=== PATIENT | female | born 1975 | race Caucasian/White ===

== ENCOUNTER → 2021-07-12 12:54 | Outpatient (CLI) | payer OTHER, SELFPAY ==
--- NOTE | ~2021-07-12 | MR_ITS ---
EXAMINATION: MR brain/brain stem wo/w con DATE: 07/12/2021 13:58 INDICATION: Dizziness and giddiness. TECHNIQUE: Magnetic resonance imaging (MRI) of the brain and brainstem was performed without and with 13 mL MultiHance intravenous contrast. Sequences included sagittal and axial T1-weighted FSE, axial diffusion-weighted FS EPI, axial T2*-weighted GRE, axial T2-weighted FLAIR Propeller, axial T2-weight ed Propeller, small oywrr-zq-dvww coronal FIESTA, small lleia-pn-hjuu coronal T1-weighted FSE, and sm all qsemx-et-lrrf axial T1-weighted SPGR. Postcontrast sequences included axial T1-weighted FSE, smal l mguhc-nf-dwyl coronal T1-weighted FSE, and small dymiu-fg-rwak axial T1-weighted SPGR. Apparent dif fusion coefficient (ADC) maps were created. COMPARISON: None. FINDINGS: There are scattered areas of nonspecific increased T2-weighted signal intensity in the cere bral white matter, which is within normal limits for the patient's age. There is no intracranial hemo rrhage, acute infarction, or abnormal intracranial mass lesion. The ventricles are normal in size. Th e internal auditory canals and inner and middle ears are normal. The mastoid air cells are normal. Th e orbits are normal. The paranasal sinuses are clear. IMPRESSION: 1. Normal aging brain. Reviewed, dictated and finalized at location A. IMPRESSION: 1. Normal aging brain.
[2021-07-12 13:23] LABS: Estimated Glomerular Filt Rate > 60
== END ==
PROVIDERS: PCP Family Medicine; Visit Provider Physician Assistant
DX: R42 Dizziness and giddiness (principal)
CPT/HCPCS: 70553; A9577

== ENCOUNTER → 2022-05-03 11:35 | Outpatient (CLI) | payer OTHER, SELFPAY ==
--- NOTE | ~2022-05-03 | US_ITS ---
EXAMINATION: US pelvic complete w TV DATE: 05/03/2022 12:08 INDICATION: Abnormal bleeding Comparison:No prior studies for comparison TECHNIQUE: Multiple transabdominal and endovaginal sonographic images of the pelvis performed. FINDINGS: The uterus measures 10 x 5.1 x 6.4 cm.. There is a hypoechoic mass of the uterus on the rig ht measuring 3.3 x 3.1 x 3.1 cm. There is a nabothian cysts. The endometrial complex measures 8 mm. The right ovary measures 2.6 x 1.6 x 2.26 cm. and the left ovary measures 2.5 x 1.6 x 1.5 cm. There i s a right ovarian cyst measuring 1.8 cm. There are small follicles in each ovary. Normal doppler sig nal in both ovaries. There is no free fluid in the pelvis. There are no abnormal masses seen on either side. IMPRESSION: 1. Uterine fibroid measuring 3.3 cm maximum dimension. 2: Right ovarian cyst measuring 1.8 cm. Reviewed, dictated and finalized at location A.
== END ==
PROVIDERS: PCP Family Medicine; Visit Provider Physician Assistant
DX: N93.9 Abnormal uterine and vaginal bleeding, unspecified (principal); D25.9 Leiomyoma of uterus, unspecified; N83.201 Unspecified ovarian cyst, right side
CPT/HCPCS: 76830; 76856

== ENCOUNTER → 2022-08-09 12:28 | Outpatient (CLI) | payer OTHER, SELFPAY ==
--- NOTE | ~2022-08-09 | MM_ITS ---
EXAMINATION: MM screening [facility] BI w kale HISTORY: Screening TECHNIQUE: Craniocaudal and mediolateral oblique 3-D tomosynthesis images were obtained and synthetic 2-D images were generated. CAD analysis was submitted and interpreted. COMPARISON: 06/27/2017 BREAST PARENCHYMAL COMPOSITION: The breasts are heterogeneously dense, which may obscure small masses . FINDINGS: There is no evidence of suspicious mass, calcification, or architectural distortion to sugg est malignancy in either breast. There has been no suspicious interval change. IMPRESSION: 1. No mammographic evidence of malignancy. 2. Recommend routine screening mammography in one year. BI-RADS Category 1: Negative Reviewed, dictated and finalized at location A.
== END ==
PROVIDERS: PCP Family Medicine; Visit Provider Family Medicine
DX: Z12.31 Encounter for screening mammogram for malignant neoplasm of breast (principal)
CPT/HCPCS: 77063; 77067

== ENCOUNTER 2022-12-19 01:13 | Day surgery (SDC) | payer OTHER, SELFPAY ==
--- NOTE | 2022-12-08 13:18 | SUR.PREOP ---
Report to the Outpatient Waiting Room, entrance under the green pavilion located off [facility], at time 0630 on date 12/19/22. Planned Procedure Time: 0830. Time changes happen often and if your time is changed the preop area will call you the afternoon before. - You and your visitor will be asked to self-screen and do not enter if you have any COVID symptoms. - Only one visitor is requested with a max of two and NO children visitors are allowed at this time. - The patient visitor may be requested to leave or wait in car when not with patient due to distancing restrictions. - A mask is optional within the hospital at this time. Patients may have clear liquids (water, carbonated beverages, clear teas, apple juice) until 3 hours prior to surgery with a maximum of 20 ounces. - NO CLEAR LIQUIDS AFTER 0530 - No food from midnight until time of surgery - Infants may have breast milk until 4 hours before surgery, formula 6 hours prior to surgery. - Children will be allowed to drink immediately following surgery. If applicable, please bring a bottle or sippy cup to assist with drinking. Juice, water, soda, and popsicles are readily available. For infants on formula, please bring formula the day of surgery. Pacifiers are allowed. Take the following medications with a SIP of water the morning of surgery: N/A DO NOT STOP ANY OF YOUR OTHER PRESCRIPTION MEDICATIONS PRIOR TO SURGERY ?EXCEPT THE FOLLOWING Medications to discontinue per physician N/A Date to take last dose N/A Please no make-up, nail greek, hairspray, perfume, deodorant, or body powder the day of surgery. No jewelry (including any body piercings) or valuables the day of surgery, leave them at home. Please take a shower or bath the night before, or the morning of, surgery with an antibacterial soap. Wear comfortable, loose fitting clothing. Children are encouraged to wear pajamas. - Jewelry must be removed prior to entering the operating room. Rings and piercings that are not removed may be cut off. - The hospital will not accept responsibility for valuables. - Please leave all valuables, including medications, at home the day of surgery. If you are going home after surgery, a licensed test car driver must drive you home. - NO public transportation without another adult if you receive anesthesia. - We recommend that an adult stay with you for 24 hours following discharge. - We also recommend that you do not drive, make important decision, drink alcoholic beverages, or take any drugs that were not prescribed by your health care provider for at least 24 hours after your discharge time. For Pediatric surgeries, we recommend two adults accompany the child home. Follow any additional instructions given to you from your surgeon. If you or anyone in your household have experienced Covid symptoms in the past week, please notify your surgeon or the nurse liaison at the phone number below for possible testing. Telephone instructions given to OLINDA ZAVALA and asked if any additional questions and then verbalized understanding. Patient advised to call surgeon office or pre surgery nurse liaison [phone] if any additional questions.
[2022-12-08 13:26] VITALS: BMI 23.5
[2022-12-19] VITALS (9 sets, daily range): BP systolic 95–127; BP diastolic 61–77; PULSE 54–80; RESP 10–16; TEMP 36.2–37.3; O2SAT 60–100
--- NOTE | 2022-12-19 06:44 | WPDHPUPDATE1 ---
History and Physical Update Update Date/Time: 12/19/22 06:44 History and Physical has been reviewed, including an updated exam of the patient. There are NO changes in the patient's condition. Risks, benefits, and alternatives have been discussed and questions answered. Patient agrees to proceed with procedure.
[2022-12-19] MEDS: LACTATED RINGERS 1,000 ML 30 ML IV CONT ×2 (07:00→12:35)
--- NOTE | 2022-12-19 07:00 | W.PM.PROC2 ---
Procedure Note - Detailed Date of Procedure 12/19/22 Pre-op Diagnosis Bilateral Micromastia, Skin Laxity Post-op Diagnosis Same Procedure Performed Progressive tension abdominoplasty with suction lipectomy Surgeon Chi Bond MD Anesthesia General Findings Tissue removed: 493 grams Lipoaspirate: 400 cc Description of Procedure They are here today for abdominoplasty. Previously and again today the risks, benefits, alternatives were discussed in extensive detail. I wanted them to be very realistic about the risks involved as well as expectations. We discussed aftercare and what to monitor for. I was very upfront about the risks of wound breakdown leading to loss of skin, open wounds, and need for additional procedures with permanent abdominal deformity. We discussed DVT/PE risks and management. Made sure answered all of their questions to their satisfaction today and consent was obtained. They were marked in the preoperative holding area with their verification. The patient was taken to the operating room placed supine on the operating table. Anesthesia was provided by anesthesiology. A Ch catheter was started. They were prepped and draped in a standard sterile fashion. A surgical time-out was taken. I placed the patient in a flexed position to verify the upper and lower markings would reach. I then placed supine. A thorough abdominal examination was completed. Stab incisions were made and tumescent solution infiltrated. Once adequate time was allowed for hemostasis a 5mm basket cannula was utilized to complete suction lipectomy based on S.A.F.E. technique in multiple planes and passes. Aspiration was completed with a 3mm tripple hole canula. There were turned to bilateral lateral decubitus position with care taken to protect them for injury during this process. Suction lipectomy continued to result based on pre-operative planning, intra-operative observation, and rolling pinch test which were in full agreement. A 10 blade was used to make the upper incision. I continued dissection down to the level of fascia. Elevated just what was necessary for repair of the diastasis. I then again flexed the bed to verify the upper skin flap would reach the lower markings without tension. Once verified I placed her supine once again and a 10 blade used to make the lower incision. I elevated up to level the umbilicus and left the umbilicus intact on a well-vascularized stalk. The intervening tissue was removed. A 2 mm blunt cannula with 0.5% bupivicaine was injected deep to the fascia bilaterally. I plicated the diastasis recti using 0 PDO stratafix barbed suture. This was in 2 separate layers using 2 separate sutures as well. I repaired around the umbilicus leaving plenty of room for well-vascularized stalk of the umbilicus with 2-0 PDS. I also repaired lateral to the rectus using two layers of 0 PDO stratafix. The patient was flexed and starting from superior to inferior began plication using 2-0 Vicryl to obliterate all space in a standard progressive tension fashion. At the umbilicus I marked out the location of the skin and inset this with 3-0 Monocryl and 4-0 Vicryl. I continued the remainder of the plication using 2-0 Vicryl until I reached my lower planned scar line. I trimmed any excess skin of the upper flap making sure this was a tension-free closure. I then approximated using a 3 point suture with 2-0 Vicryl followed by 3-0 stratafix ,running subcuticular 4-0 Monocryl, and tissue glue. Fluffs and an abdominal binder were placed. The patient was transferred to the bed in a flexed position. Awoken and taken to the PACU without difficulty. All instrument and sponge counts were correct at the end of the case. Estimated Blood Loss 75 Drains Yes (15 toby) Packing No Pathology None sent Complications No immediate complications Condition Stable Disposition PACU
[2022-12-19 07:07] LABS: Urine Cotinine NEGATIVE
--- NOTE | 2022-12-19 07:14 | P.PNAN_ITS ---
Anes - Initial Pre Proc Eval Procedure: Operation Date: 12/19/22 08:30 Proposed Procedures p Abdominoplasty with Liposuction - Chi Bond MD Date/Time: 12/19/22 07:14 Surgeon: Chi Bond MD Pre Op Diagnosis: Bilateral Micromastia, Skin Laxity Patient Data Age: 47 Gender: F Height: 1.7 m Weight: 68.2 kg Allergies Allergy/AdvReac Type Severity Reaction Status Date / Time No Known Allergies Allergy Verified 12/08/22 13:32 Home Medications Medication Instructions Recorded Confirmed Type No Home Medications 04/28/22 12/08/22 History Laboratory Tests 12/19/22 06:45 Cotinine Negative Patient hx anesthesia problems: none Family hx anesthesia problems: none Results Review: All pre-operative results and documents have been reviewed as part of the pre- operative evaluation. [facility] Past Medical History Medical History Hidradenitis axillaris Surgical History Surgical History History of delivery 2006, 2009, 2012 History of endometrial ablation Social History Social History Smoking status: Never smoker Alcohol intake: never Substance use: never Living arrangements: with family Spiritual care concerns: No Anes - Eval Final PreProcedure Day of Procedure 12/19/22 07:14 Patient weight: normal Heart: regular rate and rhythm Lungs: clear to auscultation Airway: Mallampati scale class II Neurological: alert and oriented Last oral intake: >/= 8 hours ASA classification: I Emergent: no Anesthetic plan: proceed Anesthesia type and monitoring: general LMA and standard monitoring Results Review: All pre-operative results and documents have been reviewed as part of the pre- operative evaluation. Informed Consent: The patient's anesthetic plan and its attendant risks and benefits were discussed with the patient/family/POA. Questions were solicited and answers provided to the satisfaction of the patient/family/POA.
[2022-12-19] MEDS: ceFAZolin 2 GM/D5W 50 ML 2 GM/50 ML BAG IVPB (08:28)
[2022-12-19] MEDS: TRANEXAMIC ACID 1,000MG/ISO100 1,000 MG/100 ML BAG 200 MG IVPB (08:28)
[2022-12-19] MEDS: LACTATED RINGERS IRRIG 1,000 ML, LIDOCAINE HCL 1% LOCAL INJ 50 ML, EPINEPHrine HCL INJ ... INFILTRATE (08:28)
[2022-12-19] MEDS: BUPIVACAINE/EPINEPHRINE 0.25% 50 ML VIAL 60 ML INFILTRATE (08:28)
--- NOTE | 2022-12-19 14:18 | OBPPTRN ---
1344 Patient transferred to post room #283 via bed. Support person present. Oriented to unit, room, information board, admission packet and security measures. Patient verbalizes understanding.
[2022-12-19] MEDS: LACTATED RINGERS 1,000 ML 125 ML IV CONT (14:28)
[2022-12-19] MEDS: KETOROLAC 15 MG/ML VIAL (*BKC) IV PUSH (14:36)
[2022-12-19] MEDS: oxyCODONE/ACETAMINOPHEN (*CRX) 5-325 MG TABLET PO ×2 (17:48→21:58)
[2022-12-19] MEDS: carisoprodoL (*CRX) 350 MG TABLET PO (17:50)
[2022-12-19] MEDS: DOCUSATE SODIUM 100 MG CAPSULE PO (21:58)
[2022-12-19] MEDS: ENOXAPARIN 40 MG/0.4 ML SYRINGE SUB-Q (21:58)
[2022-12-20 00:04] VITALS: BP 84/50; PULSE 69; RESP 16; TEMP 36.7; O2SAT 94
[2022-12-20] MEDS: KETOROLAC 15 MG/ML VIAL (*BKC) IV PUSH ×2 (04:17→11:22)
[2022-12-20 04:50] VITALS: BP 84/47; PULSE 68; RESP 16; TEMP 37.2; O2SAT 98
[2022-12-20] MEDS: carisoprodoL (*CRX) 350 MG TABLET PO ×3 (05:47→11:22)
--- NOTE | 2022-12-20 07:04 | WPDPN ---
Progress Note: A&P Assessment and Plan (1) Skin laxity: Code(s): L57.4 - Cutis laxa senilis Status: Acute Assessment and Plan: Doing well after progressive tension abdominoplasty with suction lipectomy. Will discharge home. I will see her back. Today we had a lengthy discussion about the care. Activity limitations. What monitor for. What is an emergency and when to proceed to the ER / dial 911. For all other questions call at any time. We will see her back. (2) Localized adiposity: Code(s): E65 - Localized adiposity Status: Acute Subjective Date/time seen: 12/20/22 07:04 Interval history: She is doing very well after progressive tension abdominoplasty with lipectomy. Pain controlled. No fevers or chills. No nausea vomiting. No shortness of breath. No chest pain. No calf tenderness. Review of Systems Review of Systems: All systems reviewed & are unremarkable except as noted in HPI and below Exam Narrative: Alert & Oriented NOD Respiratory unlabored Abdomen is healing well. No signs of infection. No hematoma. No seroma. Good color and capillary refill. Drain removed today. No calf tenderness. Negative Adam's Objective Data Vital Signs Vital Signs: Vital Signs - 24 hr 12/19/22 07:55 12/19/22 12:34 12/19/22 12:45 Temperature 36.6 C 36.3 C L Pulse Rate 56 L 55 L 54 L Respiratory Rate 14 12 10 L Blood Pressure 95/63 L 106/61 105/66 Pulse Oximetry 99 99 98 Oxygen Delivery Room Air Simple Face Mask Simple Face Mask Oxygen Flow Rate 6 6 12/19/22 13:00 12/19/22 13:15 12/19/22 13:30 Temperature Pulse Rate 56 L 67 63 Respiratory Rate 12 13 12 Blood Pressure 124/74 119/75 111/75 Pulse Oximetry 100 95 96 Oxygen Delivery Simple Face Mask Room Air Room Air Oxygen Flow Rate 6 12/19/22 13:43 12/19/22 13:45 12/19/22 17:50 Temperature 36.2 C L Pulse Rate 60 Respiratory Rate 16 Blood Pressure 127/77 Pulse Oximetry 60 L Oxygen Delivery Room Air Room Air Oxygen Flow Rate 12/19/22 17:50 12/19/22 19:30 12/19/22 19:30 Temperature 37.3 C 37.3 C Pulse Rate 75 80 Respiratory Rate 16 16 Blood Pressure 104/65 98/62 L Pulse Oximetry 96 94 Oxygen Delivery Room Air Oxygen Flow Rate 12/20/22 00:04 12/20/22 00:10 12/20/22 04:50 Temperature 36.7 C Pulse Rate 69 Respiratory Rate 16 Blood Pressure 84/50 L Pulse Oximetry 94 Oxygen Delivery Room Air Room Air Oxygen Flow Rate 12/20/22 04:50 Temperature 37.2 C Pulse Rate 68 Respiratory Rate 16 Blood Pressure 84/47 L Pulse Oximetry 98 Oxygen Delivery Oxygen Flow Rate Intake/Output Intake/Output: Intake & Output 12/17/22 12/18/22 12/19/22 12/20/22 23:59 23:59 23:59 23:59 Intake Total 2550 800 Output Total 1160 305 Balance 1390 495 Meds/Results Medications: Active Medications Generic Name Dose Route Start Last Admin Trade Name Freq PRN Reason Stop Dose Admin Carisoprodol 350 mg 12/19/22 18:00 12/20/22 05:47 Carisoprodol (*Crx) 350 Mg Tablet PO 350 mg Q6HR MICHAEL Administration Diazepam 5 mg 12/19/22 12:07 Diazepam (*Crx) 5 Mg Tablet PO TID PRN Anxiety Docusate Sodium 100 mg 12/19/22 21:00 12/19/22 21:58 Docusate Sodium 100 Mg Capsule PO 100 mg Q12HR MICHAEL Administration Enoxaparin Sodium 40 mg 12/19/22 19:00 12/19/22 21:58 Enoxaparin 40 Mg/0.4 Ml Syringe SUB-Q 40 mg DAILY@1900 [facility] Administration Lactated Ringer's 1,000 mls @ 125 mls/hr 12/19/22 12:10 12/20/22 05:35 Lr - Lactated Ringers Iv IV CONT Not Given .Q8H MICHAEL Ketorolac Tromethamine 15 mg 12/19/22 12:07 12/20/22 04:17 Ketorolac 15 Mg/Ml Vial (*Bkc) IV PUSH 15 mg Q6H PRN Administration Pain Rated 4-6 Morphine Sulfate 2 mg 12/19/22 12:07 Morphine Sulfate (*Crx) 2 Mg/Ml Inj IV PUSH Q2H PRN Pain Ondansetron HCl 4 mg 03/14/23 12:07 Ondansetron Inj 4 Mg/2 Ml Vial IV PUSH Q
--- NOTE | 2022-12-20 07:08 | P.DS_ITS ---
DS: Admitting Diagnosis Discharge Date 12/20/2022 Admitting Diagnosis Skin laxity Localized adiposity DS: Discharge Diagnosis Discharge Diagnosis (1) Skin laxity: Code(s): L57.4 - Cutis laxa senilis Status: Acute (2) Localized adiposity: Code(s): E65 - Localized adiposity Status: Acute DS: Summary Hospital Course Hospital Course: She underwent progressive tension abdominoplasty with lipectomy. Postoperatively has done very well. Will discharge home. Time Spent with Patient Time attestation: Total time spent providing and/or coordinating discharge services: Exam Narrative: Alert & Oriented NOD Respiratory unlabored Abdomen is healing well. No signs of infection. No hematoma. No seroma. Good color and capillary refill. Drain removed today. No calf tenderness. Negative Adam's Discharge Plan Discharge Patient Disposition: Home, Self-Care Discharge Instructions: POST OPERATIVE DISCHARGE INSTRUCTIONS CHI BOND M.D. [facility] SUR[facility]ERY [address] [place] [address] * No driving for 24 hours after anesthesia and while you are taking pain medication. * Take all prescribed medication as directed * Diet as tolerated. * No lifting or activity that raises blood pressure for 48 hours. * Regular walking / ambulation. * May shower 24 hours after surgery. Once you shower do not take pain medication before showering as the combination of medication and heat may cause you to feel dizzy or pass out. * No pools or tubs for 2 weeks. * Slowly stand up straight as tolerated. * No straining or lifting more than 20 pounds. * If no bowel movement within 24 hours may use laxative. * Call with any questions or concerns. * Dressing Care: Continue abdominal binder / foam 23 hours per day. If you have any questions or concerns, please call the office . If it is after hours you will be directed to the office administration exchange. Shortness of breath, chest pain, or other medical emergency dial 911 / proceed to the Emergency Room. Stand Alone Forms: General Discharge Instructions Follow-up/Referrals: Chi Bond MD [Physician] - 1 Week Discharge Medications: Continued No Home Medications
--- NOTE | 2022-12-20 07:08 | PM.DS ---
DS: Admitting Diagnosis Discharge Date 12/20/2022 Admitting Diagnosis Skin laxity Localized adiposity DS: Discharge Diagnosis Discharge Diagnosis (1) Skin laxity: Code(s): L57.4 - Cutis laxa senilis Status: Acute (2) Localized adiposity: Code(s): E65 - Localized adiposity Status: Acute DS: Summary Hospital Course Hospital Course: She underwent progressive tension abdominoplasty with lipectomy. Postoperatively has done very well. Will discharge home. Time Spent with Patient Time attestation: Total time spent providing and/or coordinating discharge services: Exam Narrative: Alert & Oriented NOD Respiratory unlabored Abdomen is healing well. No signs of infection. No hematoma. No seroma. Good color and capillary refill. Drain removed today. No calf tenderness. Negative Adam's Discharge Plan Discharge Patient Disposition: Home, Self-Care Discharge Instructions: POST OPERATIVE DISCHARGE INSTRUCTIONS CHI BOND M.D. [facility]GERY [address] [place] [address] [address] driving for 24 hours after anesthesia and while you are taking pain medication. Take all prescribed medication as directed Diet as tolerated. No lifting or activity that raises blood pressure for 48 hours. Regular walking / ambulation. May shower 24 hours after surgery. Once you shower do not take pain medication before showering as the combination of medication and heat may cause you to feel dizzy or pass out. No pools or tubs for 2 weeks. Slowly stand up straight as tolerated. No straining or lifting more than 20 pounds. If no bowel movement within 24 hours may use laxative. Call with any questions or concerns. Dressing Care: Continue abdominal binder / foam 23 hours per day. If you have any questions or concerns, please call the office . If it is after hours you will be directed to the tactical air control party exchange. Shortness of breath, chest pain, or other medical emergency dial 911 / proceed to the Emergency Room. Stand Alone Forms: General Discharge Instructions Follow-up/Referrals: Chi Bond MD [Physician] - 1 Week Discharge Medications: Continued No Home Medications
[2022-12-20 08:00] VITALS: BP 88/52; PULSE 64; RESP 18; TEMP 37.3; O2SAT 98
[2022-12-20] MEDS: DOCUSATE SODIUM 100 MG CAPSULE PO (08:55)
[2022-12-20] MEDS: oxyCODONE/ACETAMINOPHEN (*CRX) 5-325 MG TABLET PO (08:55)
--- NOTE | 2022-12-20 10:27 | WPDANESPN ---
Anes - Prog Note Post-Op Date/Time: 12/20/22 10:27 Cardiovascular status: normal Respiratory status: normal Airway patency: baseline Mental status: baseline Post-Op hydration status: normal Vital Signs: Last Vital Signs Temp 37.3 C 12/20/22 08:00 Pulse 64 12/20/22 08:00 Resp 18 12/20/22 08:00 BP 88/52 L 12/20/22 08:00 Pulse Ox 98 12/20/22 08:00 O2 Del Method Room Air 12/20/22 08:55 O2 Flow Rate 6 12/19/22 13:00 Pain Score (VAS): 0 I/O: Intake & Output 12/19/22 12/20/22 12/20/22 23:59 07:59 15:59 Intake Total 1200 800 Output Total 760 305 Balance 440 495 Post-procedural complaints: none Patient Feedback: Patient satisfied with anesthetic care.
--- NOTE | 2022-12-20 15:14 | PC.NURSE ---
1430 Sent a urine hat home with pt. Instructed her to call MD if she does not void 150 mls or more in 6 hours at a time. She V/U'd
== END 2022-12-20 14:50 | disposition home or self-care (01) ==
LOC: ANHSURGERY 07:01 → ANHOB2 14:13
PROVIDERS: PCP Family Medicine; Visit Provider Surgery Plastic and Reconstructive Surgery
PROC: (CPT 15830; principal; 2022-12-19 08:30)
DX: Z41.1 Encounter for cosmetic surgery (principal); L57.4 Cutis laxa senilis; E65 Localized adiposity
CPT/HCPCS: 15830; 15847; 15877; 80307; 99199; A9270; J0171; J0330; J0690; J1100; J1170; J1650; J1885; J2250; J2405; J2704; J2710; J3010; J7120

== ENCOUNTER 2023-06-12 11:57 | Outpatient (NON) | payer OTHER, SELFPAY | END 2023-06-12 11:58 | disposition home or self-care (01) | LOC: ANHLAB 06-13 11:58 | PROVIDERS: PCP Family Medicine; Visit Provider Nurse Practitioner | DX: D48.5 Neoplasm of uncertain behavior of skin (principal) | CPT/HCPCS: 88305 ==

== ENCOUNTER → 2023-10-16 11:22 | Outpatient (CLI) | payer OTHER, SELFPAY ==
--- NOTE | ~2023-10-16 | MM_ITS ---
EXAMINATION: MM screening [facility] BI w kale HISTORY: Screening mammogram TECHNIQUE: Craniocaudal and mediolateral oblique 3-D tomosynthesis images were obtained and synthetic 2-D images were generated. CAD analysis was submitted and interpreted. COMPARISON: 08/09/2022, 06/27/2017 BREAST PARENCHYMAL COMPOSITION: The breasts are heterogeneously dense, which may obscure small masses . FINDINGS: RIGHT BREAST: An asymmetry is present in the posterior third of the breast at the posterior fibroglan dular margin 6 cm from the nipple on the mediolateral oblique view. LEFT BREAST: No suspicious mass, calcification, or architectural distortion are identified to suggest malignancy. There has been no suspicious interval change. IMPRESSION: 1. Right breast asymmetry. 2. Additional mammographic views and possible breast ultrasound are recommended. BI-RADS Category 0: Incomplete: Needs additional imaging evaluation. Reviewed, dictated and finalized at location A. MACHINE OPERATOR IMPRESSION: 1. Right breast asymmetry. 2. Additional mammographic views and possible breast ultrasound are recommended . BI-RADS Category 0: Incomplete: Needs additional imaging evaluation.
== END ==
PROVIDERS: PCP Physician Assistant; Visit Provider Physician Assistant
DX: Z12.31 Encounter for screening mammogram for malignant neoplasm of breast (principal); R92.8 Other abnormal and inconclusive findings on diagnostic imaging of breast
CPT/HCPCS: 77063; 77067

== ENCOUNTER → 2023-11-06 09:36 | Outpatient (CLI) | payer OTHER, SELFPAY ==
--- NOTE | ~2023-11-06 | MMUS_ITS ---
EXAMINATION: MM diagnostic jean-claude RT w kale, US breast RT limited HISTORY: Follow-up right breast asymmetry TECHNIQUE: Additional 3-D tomosynthesis images of the right breast were performed and synthetic 2-D i mages were generated. CAD analysis was submitted and interpreted. High resolution Limited right breas t ultrasound was performed. COMPARISON: Comparison to multiple prior studies sequentially, with oldest reviewed study dated 06/27. BREAST PARENCHYMAL COMPOSITION: The breasts are heterogeneously dense, which may obscure small masses FINDINGS: MAMMOGRAPHIC FINDINGS: The focal asymmetry superiorly in the right breast is less apparent with spot compression and mediola teral views. ULTRASOUND: Limited right breast ultrasound: Normal heterogeneous echotexture without focal mass. IMPRESSION: 1. No evidence for malignancy in the right breast. 2. Routine yearly screening mammogram and regular clinical breast examination are recommended. BI-RADS Category 1: Negative Reviewed, dictated and finalized at location A. UNLOADER IMPRESSION: 1. No evidence for malignancy in the right breast. 2. Routine yearly screening mammogram and regular clinical breast examination a re recommended. BI-RADS Category 1: Negative
== END ==
PROVIDERS: PCP Physician Assistant; Visit Provider Physician Assistant
DX: R92.8 Other abnormal and inconclusive findings on diagnostic imaging of breast (principal)
CPT/HCPCS: 76642; 77061; 77065; G0279

== ENCOUNTER 2024-02-01 11:05 | Outpatient (CLI) | payer OTHER, SELFPAY ==
--- NOTE | ~2024-02-01 | XR_ITS ---
XR elbow RT min 3V 02/01/2024 11:32 Indication: Olecranon bursitis Procedure: 4 views left elbow Comparison: No prior studies for comparison. Findings: There is a joint effusion. There is soft tissue swelling overlying the olecranon process. N o fracture or traumatic malalignment. Impression: 1: Moderate soft tissue swelling overlying the olecranon process. 2: Moderate joint effusion. Reviewed, dictated and finalized at location B. Impression: 1: Moderate soft tissue swelling overlying the olecranon process. 2: Moderate joint effusion.
== END 2024-02-01 11:06 | disposition home or self-care (01) ==
LOC: ANHIMG 11:07
PROVIDERS: PCP Family Medicine; Visit Provider Family Medicine
DX: M70.21 Olecranon bursitis, right elbow (principal); M77.11 Lateral epicondylitis, right elbow; M25.421 Effusion, right elbow
CPT/HCPCS: 73080

== ENCOUNTER 2024-10-14 11:38 | Outpatient (CLI) | payer OTHER, SELFPAY ==
--- NOTE | ~2024-10-14 | XR_ITS ---
Cervical Spine: AP, lateral, open-mouth views Clinical History: Pain Findings: There is straightening of the normal cervical lordosis. No fracture. No definite subluxatio n. There are minimal degenerative disc changes. No instability evident on flexion or extension. Pre-v ertebral soft tissues are unremarkable. Impression: Minimal degenerative changes. Reviewed, dictated and finalized at [facility]. 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
== END 2024-10-14 11:39 | disposition home or self-care (01) ==
LOC: GOSHIMG 11:39
PROVIDERS: PCP Family Medicine; Visit Provider Family Medicine
DX: M54.12 Radiculopathy, cervical region (principal)
CPT/HCPCS: 72050

== ENCOUNTER 2024-10-15 11:08 | Outpatient (CLI) | payer OTHER, SELFPAY ==
[2024-10-15 12:39] LABS: Basophils Absolute Auto 0.1 K/mm3 (0.0-0.1); Eosinophils Absolute Auto 0.2 K/mm3 (0-0.3); Eosinophils Percent Auto 3.4 % (0-4.4); Hematocrit 41.5 % (37.0-47.0); Hemoglobin 13.6 g/dL (12.0-15.0); Immature Granulocyte Absolute 0.02 K/mm3 (0.00-0.031); Immature Granulocyte Percent A 0.3 % (0-0.5); Lymphocytes Absolute Auto 2.58 K/mm3 (0.9-3.2); Lymphocytes Percent Auto 36.5 % (18.3-44.2); Mean Corpuscular HGB Conc 32.8 g/dl (32-36); Mean Corpuscular Hemoglobin 29.9 pg (26-34); Mean Corpuscular Volume 91.2 fl (80-100); Mean Platelet Volume 9.6 fl (7.4-10.4); Monocytes Absolute Auto 0.7 K/mm3 (0.1-0.6); Monocytes Percent Auto 9.6 % (2.6-8.5); Neutrophils Absolute Auto 3.5 K/mm3 (1.3-6.7); Neutrophils Percent Auto 49.2 % (45.5-73.1); Platelet Count Result 277 k/mm3 (150-375); Red Blood Count 4.55 M/mm3 (4.2-5.4); Red Cell Distribution Width 12.9 % (11.5-14.5); White Blood Count 7.1 K/mm3 (4.5-10.0)
[2024-10-15 13:22] LABS: Alanine Aminotransferase 33 U/L (6-35); Albumin Level 4.1 g/dL (3.5-5.1); Alkaline Phosphatase 69 U/L (38-126); Anion Gap 5 mmol/L (4-12); Aspartate Amino Transferase 43 U/L (14-36); Bilirubin,Total 0.5 mg/dL (0.2-1.3); Blood Urea Nitrogen 15 mg/dL (7-17); Calcium 8.9 mg/dL (8.4-10.2); Carbon Dioxide 28 mmol/L (22-30); Chloride 103 mmol/L (98-107); Cholesterol 223 mg/dL (0-200); Estimated Glomerular Filt Rate > 60; Glucose 92 mg/dL (65-110); HDL Direct 54 mg/dL; Sodium 136 mmol/L (137-145); Triglycerides 105 mg/dL (<150)
[2024-10-15 13:32] LABS: LDL Cholesterol Direct 134 mg/dL
== END 2024-10-15 11:09 | disposition home or self-care (01) ==
LOC: ANHGOSHLAB 11:09
PROVIDERS: PCP Family Medicine; Visit Provider Family Medicine
DX: Z00.00 Encounter for general adult medical examination without abnormal findings (principal)
CPT/HCPCS: 36415; 80053; 80061; 85025

== ENCOUNTER 2024-10-22 11:15 | Outpatient (CLI) | payer OTHER, SELFPAY ==
--- NOTE | ~2024-10-22 | MM_ITS ---
EXAMINATION: MM screening jean-claude BI w kale HISTORY: Screening mammogram TECHNIQUE: Craniocaudal and mediolateral oblique 3-D tomosynthesis images were obtained and synthetic 2-D images were generated. CAD analysis was submitted and interpreted. COMPARISON: 10/16/2023, 08/09/2022 BREAST PARENCHYMAL COMPOSITION:Dense: The breasts are heterogeneously dense, which may obscure small masses. FINDINGS: No suspicious mass, calcification, or architectural distortion are identified in either veena ast to suggest malignancy. There has been no suspicious interval change. IMPRESSION: No mammographic evidence of malignancy. Recommend routine screening mammography in one year. BI-RADS Category 1: Negative Reviewed, dictated and finalized at location . 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
== END 2024-10-22 11:16 | disposition home or self-care (01) ==
LOC: MICIMG 11:17
PROVIDERS: PCP Family Medicine; Visit Provider Physician Assistant
DX: Z12.31 Encounter for screening mammogram for malignant neoplasm of breast (principal)
CPT/HCPCS: 77063; 77067